=== PATIENT | male | born 1960 | race Caucasian/White ===

== ENCOUNTER 2017-01-13 20:29 | Emergency (ER) | payer BC ==
[2017-01-13 21:06] VITALS: BP 121/72
[2017-01-13] MEDS ORDERED: Tetan/Diph/Pertus SYR(Tdap)* 0.5 ML SYR(BOOSTRIX) use SYR IM ONE (21:11)
--- NOTE | 2017-01-13 21:11 | UC ---
Eye Complaint HPI - HPI Summary HPI Summary: 56 year old male presents with right eye pain secondary to a piece of cement. - History of Current Complaint Chief Complaint: UCEye Stated Complaint: RT EYE INJURY Time Seen by Provider: 01/13/17 21:08 Hx Obtained From: Patient Onset/Duration: Sudden Onset Severity Initially: Moderate Severity Currently: Moderate Location of Injury: Conjunctiva Character: Sharp Aggravating Factor(s): Nothing Alleviating Factor(s): Nothing Associated Signs And Symptoms: Positive: Negative - Allergies/Home Medications Allergies/Adverse Reactions: Allergies Allergy/AdvReac Type Severity Reaction Status Date / Time No Known Allergies Allergy Verified 01/13/17 21:06 PMH/Surg Hx/FS Hx/Imm Hx Previously Healthy: Yes - Surgical History Surgical History: Yes Surgery Procedure, Year, and Place: appy - Social History Alcohol Use: Rare Substance Use Type: None Smoking Status (MU): Heavy Every Day Tobacco Smoker Type: Cigarettes Amount Used/How Often: 1 ppd Review of Systems Constitutional: Negative Skin: Negative Eyes: Eye Redness, Photophobia ENT: Negative Respiratory: Negative Cardiovascular: Negative Gastrointestinal: Negative Genitourinary: Negative Motor: Negative Neurovascular: Negative Musculoskeletal: Negative Neurological: Negative Psychological: Negative All Other Systems Reviewed And Are Negative: Yes Physical Exam Triage Information Reviewed: Yes Vital Signs: Initial Vital Signs Temp 36.7 C 01/13/17 21:01 Pulse 79 01/13/17 21:01 Resp 17 01/13/17 21:01 BP 121/72 01/13/17 21:01 Pulse Ox 98 01/13/17 21:01 Vital Signs Reviewed: Yes Eyes: Positive: Conjunctiva Inflamed ENT Exam: Normal Dental Exam: Normal Neck exam: Normal Neck: Positive: 1 Respiratory Exam: Normal Cardiovascular Exam: Normal Abdominal Exam: Normal Musculoskeletal Exam: Normal Neurological Exam: Normal Psychological Exam: Normal Skin Exam: Normal Eye Complaint Course/Dx - Course Course Of Treatment: TETRACAINE, MORGANS LENS, LR,. FLUROSCEIN , WOOD LAMP. IRRIGATION WITH SALINE X 3 - Differential Dx/Diagnosis Provider Diagnoses: right eye erythema. right eye discharge. right eye foreign body Discharge - Discharge Plan Condition: Stable Disposition: HOME Prescriptions: Ciprofloxacin 0.3% OPTH.MARIAM* [Cipro 0.3% Opth*] 2 drop RIGHT EYE Q4H #1 btl Patient Education Materials: Eye Foreign Body (ED) Referrals: Steve Calderon MD [Medical Doctor] -
[2017-01-13] MEDS ORDERED: Fluorescein Sodium TOPICAL* 1 MG TEST OPHTHALMIC ONE (21:12)
[2017-01-13] MEDS ORDERED: Tetracaine 0.5% OPTH.SOL 4 ML* 1 DROP BTL RIGHT EYE ONE (21:13)
[2017-01-13] MEDS ORDERED: Ciprofloxacin 0.3% OPTH.SOL* 2.5 ML BTL RIGHT EYE ONE (22:07)
[2017-01-13] MEDS ORDERED: Ibuprofen TAB* 400 MG PO ONE (22:26)
== END 2017-01-13 22:38 | disposition home or self-care (01) ==
LOC: UCCORT 20:29
DX: L53.9 Erythematous condition, unspecified (principal); T15.11XA Foreign body in conjunctival sac, right eye, initial encounter; X58.XXXA Exposure to other specified factors, initial encounter; Y93.89 Activity, other specified; Y92.9 Unspecified place or not applicable; F17.210 Nicotine dependence, cigarettes, uncomplicated
CPT/HCPCS: 90715; 99203; A9270-GY; G0463